=== PATIENT | male | born 1965 | race Caucasian/White ===

== ENCOUNTER 2018-05-13 18:48 | Emergency (ER) | payer OTHER, SELFPAY ==
[2018-05-13 18:49] VITALS: BP 176/94; PULSE 79; RESP 20; TEMP 36.8; O2SAT 93; BMI 36.8
[2018-05-13 19:14] VITALS: PULSE 72; O2SAT 95
--- NOTE | 2018-05-13 19:23 | EKG12_ITS ---
Test Reason : SOB Blood Pressure : / mmHG Vent. Rate : 071 BPM Atrial Rate : 071 BPM P-R Int : 146 ms QRS Dur : 104 ms QT Int : 424 ms P-R-T Axes : 039 -37 -23 degrees QTc Int : 460 ms Normal sinus rhythm Left axis deviation Nonspecific ST and T wave abnormality Abnormal ECG Confirmed by ROBERT LINDQUIST, NEMO ([id number]), editor book ECHO DURAN ([id number]) on 05/16/2018 1:35:39 PM Referred By: DAVID Confirmed By:NEMO JONES MD
--- NOTE | 2018-05-13 19:27 | ED.RN ---
NO OLD EKGS IN MUSE
--- NOTE | 2018-05-13 19:29 | ED.DCSUM_ITS ---
- ER Visit Summary Date of Service: 05/13/18 Chief Complaint: Shortness of breath History of Present Illness: The patient is a 52 M history of asthma and hypertension. Patient states he became short of breath at 2:00 this morning. With wheezing. Cough of green phlegm. No chest pain. No hemoptysis. No history of DVT or PE. No history of cardiac disease. States he has had some trace edema in his ankles. No recent travel, surgery, immobilization or hospitalization. Patient thinks he may have been exposed to chemicals which caused him to wheeze and be short of breath. He is not on any steroids currently. He does have an inhaler. Physical Examination: Well-appearing middle-age male. Vital signs are stable. Pulse ox 93% on room air no hypoxia. H EENT exam unremarkable. Neck nontender. No lymphadenopathy. No JVD. Lungs few scattered expiratory wheezes. No rales . No rhonchi. Equal symmetrical. Prolonged expiratory phase. Heart regular rhythm rate about 80 no murmur. Abdomen soft nontender. Normal bowel sounds no peritoneal signs. He is moving all 4 extremities. They are neurovascularly intact. Calves are nontender. He has trace edema at the ankles bilaterally. There are no cords. Neurologically is awake and alert with no focal motor deficits. Test Results: Chest x-ray chronic changes possible COPD no acute process. Read both by myself and the radiologist. EKG sinus rhythm rate of 71 no acute signs of ischemia. Hemogram normal white count of 10. Normal hemoglobin. Electrolytes normal normal creatinine and gap. Troponin normal. Emergency Department Course and Treatment: Patient treated with DuoNeb and albuterol aerosols. P.o. prednisone. Clinically I suspect this is secondary to acute exacerbation of asthma. Due to his age and minor ankle edema I will put him through a cardiac workup. Repeat exam patient is doing better at 2110 post treatment. He is comfortable being discharged home. Treatment Plan: Inhaler as needed. Redness zone daily 40 mg for the next 7 days. Disposition: Discharge Impression: Acute dyspnea secondary to acute exacerbation of asthma Viral URI This note was generated with [employer] dictation software. It may contain incorrect words, spelling, and punctuation that were not noted in review of the chart prior to signing ED Disposition - Plan for ED Patient: Chief Complaint: Shortness of Breath Referrals: [facility],Out of [Primary Care Provider] -
[2018-05-13] MEDS: Ipratropium/Albuterol Sulfate 3 ML AMPUL.NEB INHALATION (19:37)
[2018-05-13] MEDS: Albuterol 2.5 MG/3 ML VIAL.NEB. INHALATION (19:37)
[2018-05-13 19:40] VITALS: PULSE 79; RESP 10
[2018-05-13 19:59] LABS: Absolute Lymphocyte Count 1.79 X10^3/ul (0.83-4.51); Absolute Neutrophil Count 7.3 X10^3/uL (2.0-7.7); Basophil# 0.02 X10^3/uL; Basophil% 0.2 % (0-1); Eosinophil# 0.78 X10^3/uL; Eosinophils% 7.3 % (0-5); Hematocrit 42.3 % (40-54); Lymphocyte # 1.79 X10^3/ul (4.0); Lymphocyte % 16.8 % (19-41); Mean Corp Hgb Conc 33.1 g/gl (32-36); Mean Corpuscular Hgb 29.1 pg (27.0-32.0); Mean Corpuscular Volume 87.9 fL (80-94); Mean Platelet Vol. 9.4 fl (6.2-12.0); Monocyte# 0.82 X10^3/uL; Monocyte% 7.7 % (0-10); Neutrophil # 7.25 X10^3/uL (2.7-7.7); Neutrophil % 67.9 % (47-70); POSITIVE COUNT NO; POSITIVE DIFFERENTIAL NO; POSITIVE MORPHOLOGY NO; Platelet Count 380 K/mm3 (150-450); RBC Distribution Width CV 13.2 % (11.6-14.6); RBC Distribution Width SD 42.3 fl (35.1-43.9); Red Blood Count 4.81 M/mm3 (4.6-6.2); White Blood Count 10.7 K/mm3 (4.4-11.0)
--- NOTE | 2018-05-13 20:01 | RAD_ITS ---
STUDY: X-RAY CHEST REASON FOR EXAM: Male, 52 years old. Short of breath. TECHNIQUE: Frontal and lateral views of the chest. COMPARISON: None. FINDINGS: The lungs are hyperexpanded. There are coarsened interstitial markings suggestive of mild chronic fibrosis. No gross focal infiltrates. No gross effusions. Normal size heart. Normal mediastinum and ger. There is prominence of the pulmonary hilar arteries without peripheral pulmonary vascular congestion, suggesting pulmonary hypertension. Normal visualized aortic arch and descending thoracic aorta. There are diffuse degenerative changes of the visualized thoracic spine. Normal visualized ribs, clavicles, and shoulders. There is no demonstrated abnormality of the visualized soft tissue structures of the upper abdomen. RAD/Chest PA and Lateral IMPRESSION: There are findings consistent with COPD. There is no evidence of acute chest disease. Electronically Signed: Denis Ascencio MD at 20:26 EDT , Service support ,
[2018-05-13 20:10] VITALS: O2SAT 97
[2018-05-13 20:16] LABS: Anion Gap 6 (5-15); BUN 12 mg/dL (7-18); BUN/Creat Ratio 11.1 RATIO (10-20); Calcium,Total 8.4 mg/dL (8.5-10.1); Chloride 106 mmol/L (98-107); Creatinine, Serum 1.08 mg/dL (0.70-1.30); EST Glomerular Filtration Rate 76 mL/min (>60); Est Glom Filt Rate - Afr Amer 92 mL/min (>60); Estimated Creatinine Clearance 73.95 ml/min; Glucose 88 mg/dL (74-106); Potassium 3.5 mmol/L (3.5-5.1); Sodium Level 141 mmol/L (136-145)
[2018-05-13] MEDS: predniSONE 20 MG Tablet 60 MG PO (20:27)
--- NOTE | 2018-05-13 21:12 | ED.DEP ---
ED Disposition - Plan for ED Patient: Disposition: Home or Assisted Living Chief Complaint: Shortness of Breath Instructions: ED Bronchitis Asthmatic Prescriptions: Albuterol Inhaler [Ventolin Hfa] 1 - 2 puff INHALATION Q4H PRN PRN #1 inhaler PRN Reason: asthma' Prednisone [Deltasone] 40 mg PO DAILY 7 Days tab Referrals: [facility],Out of [Primary Care Provider] - Additional Instructions: 40 mg of prednisone for the next 7 days. Inhaler 1-2 puffs every 2-4 hours as needed. Follow-up with not improving and return if worse.
[2018-05-13 21:23] VITALS: BP 152/92; PULSE 72; RESP 24; O2SAT 92
[2018-05-13 21:45] VITALS: BP 152/94; PULSE 81; RESP 16; O2SAT 95
== END 2018-05-13 21:46 | disposition home or self-care (01) ==
PROVIDERS: Emergency Provider Emergency Medicine
DX: J45.901 Unspecified asthma with (acute) exacerbation (principal); J06.9 Acute upper respiratory infection, unspecified; R06.00 Dyspnea, unspecified; I10 Essential (primary) hypertension; Z79.51 Long term (current) use of inhaled steroids; Z79.899 Other long term (current) drug therapy
CPT/HCPCS: 71046; 80048; 84484; 85025; 93005; 94640; 99285; A4216